=== PATIENT | female | born 1950 | race Caucasian/White ===

== ENCOUNTER → 2016-09-16 | Day surgery (SDC) | payer OTHER, MEDICARE ==
[~2016-09-16] VITALS: Ht 157.5 cm; Wt 76.2 kg
[~2016-09-16] MED LIST: AMOXICILLIN875 M1 PO; COUMADIN1 M1 PO; COUMADIN5 M2 PO; DAILY MULTIPLE1 EACH PO; DOCUSATE SODIU100 M3 PO; ECOTRIN81 MG PO; FERROUS SULFAT325 M3 PO; FLUZONE IM; MECLIZINE HCL25 MG PO; MIRTAZAPINE15 MG PO; MULTIVITAMIN1 TAB PO; NORVASC5 MG PO; PERCOCET 5-3251 EACH PO; TOPROL XL50 M1 PO; TRAMADOL HCL50 M1 PO; TRANSDERM-SCOP1 EACH TOP; TRAZODONE50 MG PO; VALSARTAN160 MG PO; VITAMIN D32000 I1 PO; ZOFRAN ODT4 M1 SL; ZOLOFT50 MG PO
--- NOTE | 2016-09-16 10:25 | Operative Report ---
Operative/Inv Procedure Report Surgery Date: 09/16/16 Name of Procedure: cystolithalopaxy, attempt at mesh erosion into bladder removal, vaginally and cystoscopically Pre-Operative Diagnosis: mesh erosion into bladder with bladder stones on eroded mesh Post-Operative Diagnosis: same Estimated Blood Loss: 200cc Surgeon/Hadoop Infrastructure Architect: ANSELMO CUENCA MD Anesthesia: laryngeal mask airway Specimens: bladder biopsies Complications: unable to remove eroded bladder mesh Condition: stable Operative Indication: eroded mesh into bladder from vagina Operative/Procedure Note Note: Operative dictation on patient Meagan Hunt. She was identified in the holding area and consented for cystolitholapaxy and vaginal mesh removal. She was given the risks benefits and alternatives of the surgery. All questions were answered. Patient was taken to the operating room placed on the operating table in the supine position. Once timeout was performed and IV antibiotics were infused LMA anesthesia was started. Patient was placed in the dorsal lithotomy position taking care of her right hip which she has injury 2. Cystoscopy was performed initially and the bladder was globally inspected. Ureteral orifices were easily identified in their normal anatomical position. On the right dome lateral wall 2 stones were seen performed on eroded mesh into the bladder wall. These were lasered with the [email or web address] laser with a 550 fiber. They were pulverized and no fragment fragments were needed to be removed. The remaining mesh was attempted to be removed with the laser fiber however it seemed to melt the mesh material rather than cut it. Attempt at cutting this the mesh out using the cystoscopic scissors was also unsuccessful. Attempts at doing with a laparoscopic scissor was also not successful. A Sanders retractor was placed to allow visualization of the vagina. The posterior approach was first attempted and the vaginal flaps are created taking care not to injure the rectum. However the suture was clear and not able to be reached in this manner and the incision was closed with running locking 2-0 Vicryl suture. Multiple rectal exams were performed to ensure that the rectum was not injured. There was an area of the weakening in the rectal wall that was oversewn with interrupted 2-0 Vicryl sutures prior to closing. Anterior vaginal wall was then infiltrated with 1% lidocaine with epinephrine and the vaginal flaps are created taking care not to injure the bladder. Again the suture was not able to be reached from this perspective either. The mesh was not palpable however of a knots or plastic device was palpable but was unable to be reached in this manner either. As result cystoscopy was performed to ensure that the bladder was not injured. And then the anterior vaginal wall was closed with running locking 2-0 Vicryl sutures well. The Jackson catheter was removed and the vagina was packed with 2 inch vaginal packing impregnated with bacitracin ointment. Patient tolerated the procedure well and sponge and needle counts were correct at the end the case. Findings: eroded mesh into right dome/lateral wall with stones formed on eroded mesh Discharge Disposition: PACU
== END ==
LOC: STS 01:29
DX: N21.0 Calculus in bladder (principal); T83.712A Erosion of implanted urethral mesh to surrounding organ or tissue, initial encounter; Y73.1 Therapeutic (nonsurgical) and rehabilitative gastroenterology and urology devices associated with adverse incidents; R10.2 Pelvic and perineal pain; J44.9 Chronic obstructive pulmonary disease, unspecified; Z87.891 Personal history of nicotine dependence; M25.851 Other specified joint disorders, right hip
CPT/HCPCS: 88305; J0131; J0690; J2250

== ENCOUNTER 2016-11-04 07:57 | Emergency (ER) | payer OTHER, MEDICARE ==
[~2016-11-04] VITALS: Ht 162.6 cm; Wt 76.2 kg
[~2016-11-04 07:57] MED LIST changes: -AMOXICILLIN875 M1 PO; -COUMADIN1 M1 PO; -COUMADIN5 M2 PO; -DAILY MULTIPLE1 EACH PO; -DOCUSATE SODIU100 M3 PO; -FERROUS SULFAT325 M3 PO; -MECLIZINE HCL25 MG PO; -PERCOCET 5-3251 EACH PO; -TOPROL XL50 M1 PO; -TRAMADOL HCL50 M1 PO; -TRANSDERM-SCOP1 EACH TOP; -ZOFRAN ODT4 M1 SL
[2016-11-04] MEDS ORDERED: TRAMADOL HCL50 M1 PO (08:13)
[2016-11-04 09:13] LABS: ABSOLUTE BASOPHIL COUNT 0 /CUMM (0.0-0.2); ABSOLUTE EOSINOPHIL COUNT 0.1 /CUMM (0.0-0.7); ABSOLUTE GRANULOCYTE CT 3.4 /CUMM (1.4-6.5); ABSOLUTE LYMPH COUNT 1.7 /CUMM (1.2-3.4); ABSOLUTE MONOCYTE COUNT 0.4 /CUMM (0.10-0.60); BASOPHIL % 0.4 % (0.0-2.0); EOSINOPHIL % 2.6 % (0-5); GRANULOCYTE % 60.2 % (42.2-75.2); HEMATOCRIT 42.5 % (37-47); MEAN CORPUSCULAR HGB 34.2 PG (27.0-31.0); MEAN CORPUSCULAR HGB CONC 34.2 G/DL (33.0-37.0); MEAN CORPUSCULAR VOLUME 99.9 FL (81.0-99.0); MEAN PLATELET VOLUME 7.6 FL (7.4-10.4); PLATELET COUNT 266 /CUMM (130-400); RBC DISTRIBUTION WIDTH 13.6 % (11.5-14.5); RED BLOOD CELL CT 4.26 /CUMM (4.20-5.40); WHITE BLOOD CELL COUNT 5.6 /CUMM (4.8-10.8)
--- NOTE | 2016-11-04 09:23 | RADIOLOGY REPORT ---
EXAMINATION: XR CHEST CLINICAL INFORMATION: Cough and weakness COMPARISON: CT screening chest 12/17/2015 TECHNIQUE: 2 views of the chest were obtained. FINDINGS: Both lungs are fairly well-expanded with platelike atelectasis left midlung. Rest of the lungs are clear. The heart size and pulmonary vascularity is normal. No gross bony abnormality seen. IMPRESSION: Platelike atelectasis left midlung. No acute pneumonic process seen.
--- NOTE | 2016-11-04 10:08 | CT SCAN REPORT ---
EXAMINATION: CT HEAD WITHOUT CONTRAST CLINICAL INFORMATION: Positional vertigo, headache. COMPARISON: CT brain 01/12/2013. TECHNIQUE: Contiguous axial imaging was performed from the skull base to vertex without intravenous administration of contrast. DLP: 600 mGy-cm FINDINGS: There is no evidence of acute intracranial hemorrhage or territorial infarction. No abnormal mass effect or midline shift is seen. [place] to white matter differentiation is well preserved. No extra-axial fluid collections are identified. The ventricles are normal in size. There is no abnormal attenuation within the brain parenchyma. The osseous structures and soft tissues are normal. The mastoid air cells and visualized portions of the paranasal sinuses are well aerated. IMPRESSION: No acute intracranial process seen.
[2016-11-04] MEDS ORDERED: MECLIZINE HCL25 MG PO (10:20)
[2016-11-04] MEDS ORDERED: ZOFRAN ODT4 M1 SL (10:20)
[2016-11-04] MEDS ORDERED: AMOXICILLIN875 M1 PO (10:20)
[2016-11-04] MEDS ORDERED: TRANSDERM-SCOP1 EACH TOP (10:20)
--- NOTE | 2016-11-04 10:20 | ED AMS/SEIZURE/WEAK/DIZZY ---
History of Present Illness General Chief Complaint: General Adult Stated Complaint: DIZZY,CHEST TIGHNESS,NAUSEA Source: patient, family, old records Exam Limitations: no limitations Vital Signs & Intake/Output Vital Signs & Intake/Output Vital Signs Date Time Temp Pulse Resp B/P Pulse O2 O2 Flow FiO2 Ox Delivery Rate 11/04 1033 98.2 88 18 158/77 96 11/04 0917 99 11/04 0830 98 Room Air 11/04 0809 97.2 84 22 183/97 95 Room Air Allergies Coded Allergies: ciprofloxacin (From Cipro) (UNKNOWN 09/15/16) sulfamethoxazole (From Bactrim) (UNKNOWN 09/15/16) trimethoprim (From Bactrim) (UNKNOWN 09/15/16) Reconcile Medications Amoxicillin 875 MG TABLET 1 TAB PO BID otitis media Aspirin (Ecotrin) 81 MG ECT 1 TAB PO DAILY HEART (Reported) CHOLECALCIFEROL (VITAMIN D3) (Vitamin D-3) 2,000 UNIT CAPSULE 1 SGL PO DAILY SUPPLEMENT (Reported) Meclizine HCl 25 MG TABLET 1 TAB PO TIDPRN PRN dizziness Ondansetron (Zofran Odt) 4 MG TAB.RAPDIS 1 TAB SL TID PRN dizziness Scopolamine Hydrobromide (Transderm-Scop) 1.5MG/3DAY PATCH.TD.3 1 PAT TOP Q3D vertigo apply to the hairless area behind 1 ear at least 4 hours before effect is required; reapply every 3 days as needed Tramadol HCl 50 MG TABLET 1 TAB PO TIDPRN PAIN (Reported) Core Measure Meds Pre-Hospital aspirin Triage Note: PT TO ED C/O CHEST "TIGHTNESS" AND DIZZINESS SINCE THIS AM. PT STATES SHE WOKE UP AT 0500 TO GO TO THE BATHROOM AND FELT DIZZY. AMBULATED TO BATHROOM, THEN BACK TO BED. AGAIN WOKE UP WITH SAME DIZZY FEELING. ALSO C/O N/V. STATES MOSTLY "PHLEGM". PT HAS NOT BEEN DIAGNOSED WITH HTN, BUT PT STATES RECENTLY IT HAS BEEN HIGH. PCP IS DR HARE, HE IS AWARE OF BP ISSUES. PT AWAITING PROVIDER EVAL. Triage Nurses Notes Reviewed? yes Onset: Just prior to arrival Duration: hour(s):, constant, continues in ED Timing: recent history Injury Environment: home Severity: moderate, severe Modifying Factors: Improves With: rest. Worsens With: movement. Associated Symptoms: cough, chest pain LMP (ages 10-50): post menopausal : No Patient currently breastfeeds: No HPI: Several days prior to admission patient complains of nasal congestion nonproductive cough malaise and prescribed Zithromax with inhaler. Several hours prior to admission patient awoke with an episode of dizziness when getting out of bed. She went back to sleep and woke 2 hours later with recurrent dizziness. She went downstairs sat in the recliner with continued symptoms along with upper abdominal/chest discomfort described as tight radiating to back associated with nausea. She denies fever chills shortness of breath headache dysuria rash bleeding. Past History Travel History Traveled to [place] past 21 day No Medical History Any Pertinent Medical History? see below for history Musculoskeletal: "BAD" RIGHT HIP Influenza Vaccine: 06/06/14 Surgical History Surgical History: non-contributory Psychosocial History What is your primary language Afghan Tobacco Use: Never used ETOH Use: denies use Illicit Drug Use: denies illicit drug use Family History Hx Contributory? No Review of Systems Review of Systems Constitutional: Reports: see HPI, malaise. EENTM: Reports: no symptoms. Respiratory: Reports: see HPI, cough. Cardiovascular: Reports: see HPI, chest pain. GI: Reports: see HPI, abdominal pain, nausea. Genitourinary: Reports: no symptoms. Musculoskeletal: Reports: see HPI, joint pain. Skin: Reports: no symptoms. Neurological/Psychological: Reports: no symptoms. Hematologic/Endocrine: Reports: no symptoms. Immunologic/Allergic: Reports: no symptoms. All Other Systems: Reviewed and Negative Physical Exam Physical Exam General Appearance: well developed/nourished, alert, awake, anxious, moderate distress, obese Head: atraumatic, normal appearance Eyes: Bilateral: normal appearance, PERRL, EOMI. Ears, Nose, Throat: normal pharynx, abnormal Tympanic (R), abnormal Typanic (L) Neck: normal inspection, supple, full range of motion, no midline tenderness Respiratory: normal breath sounds, chest non-tender, no respiratory distress, quiet respiration, lungs clear Cardiovascular: regular rate/rhythm, normal peripheral pulses, norml femoral pulses equa Peripheral Pulses: 4+ carotid (R), 4+ carotid (L) Gastrointestinal: normal bowel sounds, soft, non-tender, no organomegaly Back: normal inspection, normal range of motion Extremities: normal range of motion, no ligament instability Neurologic/Psych: no motor/sensory deficits, awake, alert, oriented x 3, positive nystagmus Reflexes: 2+: bicep (R), bicep (L). Skin: intact, normal color, warm/dry Lymphatic: no anterior cervical karla Core Measures ACS in differential dx? No CVA/TIA Diagnosis: No Severe Sepsis Present: No Septic Shock Present: No Progress Differential Diagnosis: benign positional vertigo, CVA/stroke, drug intoxication , electrolyte imbalance, labrynthitis, pneumonia Plan of Care: Orders Procedure Date/time Status TROPONIN LEVEL 11/04 854 Complete COMPREHENSIVE METABOLIC PANEL 11/04 854 Complete CBC WITHOUT DIFFERENTIAL 11/04 854 Complete EKG 11/04 0758 Active Laboratory Tests 11/04/16 0900: Anion Gap 9, Estimated GFR > 60, BUN/Creatinine Ratio 20.0, Glucose 85, Calcium 9.1, Total Bilirubin 0.7, AST 31, ALT 30, Alkaline Phosphatase 84, Troponin I < 0.01, Total Protein 6.3, Albumin 3.5, Globulin 2.8, Albumin/Globulin Ratio 1.3, CBC w Diff NO MAN DIFF REQ, RBC 4.26, MCV 99.9 H, MCH 34.2 H, RDW 13.6, MPV 7.6, Gran % 60.2, Lymphocytes % 30.2, Monocytes % 6.6, Eosinophils % 2.6, Basophils % 0.4, Absolute Granulocytes 3.4, Absolute Lymphocytes 1.7, Absolute Monocytes 0.4, Absolute Eosinophils 0.1, Absolute Basophils 0, PUBS MCHC 34.2 Diagnostic Imaging: Viewed by Me: Radiology Read. Discussed w/RAD: Radiology Read. Radiology Impression: no acute abnormality CXR Impression: no acute abnormality Initial ED EKG: normal axis, normal intervals, normal p-waves, normal QRS complex, normal sinus rhythm, nonspecific ST T wave chg Prior EKG: unchanged Rhythm Strip: normal sinus rhythm Departure Departure Time of Disposition: 1015 Disposition: HOME OR SELF CARE Condition: Stable Clinical Impression Primary Impression: Otitis media Qualifiers: Otitis media type: unspecified Laterality: unspecified laterality Chronicity: acute Qualified Code: H66.90 - Otitis media, unspecified, unspecified ear Secondary Impressions: Bronchospasm with bronchitis, acute Labyrinthine vertigo Qualifiers: Laterality: unspecified laterality Qualified Code: H81.399 - Other peripheral vertigo, unspecified ear Referrals: ANANYA FREGOSO,JUAN Pedroza (PCP/Family) Departure Forms: Customer Survey General Discharge Information Prescriptions: Current Visit Scripts Amoxicillin 1 TAB PO BID #20 TAB Ondansetron (Zofran Odt) 1 TAB SL TID PRN dizziness #15 TAB Scopolamine Hydrobromide (Transderm-Scop) 1 PAT TOP Q3D #4 PAT apply to the hairless area behind 1 ear at least 4 hours before effect is required; reapply every 3 days as needed Meclizine HCl 1 TAB PO TIDPRN PRN dizziness #30 TAB
[2016-11-04 10:33] VITALS: BP 158/77
[2016-12-04] MEDS ORDERED: TOPROL XL50 M1 PO (16:07)
[2016-12-04] MEDS ORDERED: DAILY MULTIPLE1 EACH PO (16:08)
[2016-12-04] MEDS ORDERED: FERROUS SULFAT325 M3 PO (16:08)
== END 2016-11-04 10:42 ==
LOC: ERH 07:57
PROVIDERS: Emergency Medicine
DX: H66.92 Otitis media, unspecified, left ear (principal); J20.9 Acute bronchitis, unspecified; H81.09 Meniere's disease, unspecified ear; R07.89 Other chest pain; R11.0 Nausea
CPT/HCPCS: 1263; 93005; 93010; 96361; 96374; J2405

== ENCOUNTER 2016-11-18 15:00 | Emergency (ER) | payer OTHER, MEDICARE ==
[~2016-11-18] VITALS: Ht 167.6 cm; Wt 77.1 kg
[~2016-11-18 15:00] MED LIST changes: +AMOXICILLIN875 M1 PO; +MECLIZINE HCL25 MG PO; +TRAMADOL HCL50 M1 PO; +TRANSDERM-SCOP1 EACH TOP; +ZOFRAN ODT4 M1 SL
--- NOTE | 2016-11-18 17:39 | ED UPPER/LOWER EXTREMITY COMPL ---
History of Present Illness General Chief Complaint: Lower Extremity Problems Stated Complaint: LFT ANKLE INJURY/NO INJURY Source: patient, old records Exam Limitations: no limitations Vital Signs & Intake/Output Vital Signs & Intake/Output Vital Signs Date Time Temp Pulse Resp B/P Pulse O2 O2 Flow FiO2 Ox Delivery Rate 11/18 2028 98.1 72 18 130/80 96 Room Air 11/18 1904 98.0 102 18 156/100 96 Room Air 11/18 1741 78 18 160/99 11/18 1532 98.3 112 20 175/111 96 Room Air ED Intake and Output 11/19 0000 11/18 1200 Intake Total Output Total Balance Patient 170 lb Weight Allergies Coded Allergies: ciprofloxacin (From Cipro) (UNKNOWN 09/15/16) sulfamethoxazole (From Bactrim) (UNKNOWN 09/15/16) trimethoprim (From Bactrim) (UNKNOWN 09/15/16) Reconcile Medications Amoxicillin 875 MG TABLET 1 TAB PO BID otitis media Aspirin (Ecotrin) 81 MG ECT 1 TAB PO DAILY HEART (Reported) CHOLECALCIFEROL (VITAMIN D3) (Vitamin D-3) 2,000 UNIT CAPSULE 1 SGL PO DAILY SUPPLEMENT (Reported) Meclizine HCl 25 MG TABLET 1 TAB PO TIDPRN PRN dizziness Ondansetron (Zofran Odt) 4 MG TAB.RAPDIS 1 TAB SL TID PRN dizziness Scopolamine Hydrobromide (Transderm-Scop) 1.5MG/3DAY PATCH.TD.3 1 PAT TOP Q3D vertigo apply to the hairless area behind 1 ear at least 4 hours before effect is required; reapply every 3 days as needed Tramadol HCl 50 MG TABLET 1 TAB PO TIDPRN PAIN (Reported) Triage Note: C/O PAIN WITH SWELLING TO LEFT LOWER LEG X 3 DAYS. PAIN IS LOCATED IN LEFT CALF, WORSE TO TOUCH. PMH: BLOOD CLOT LEFT LOWER LEG 2010. Triage Nurses Notes Reviewed? yes Onset: Abrupt Duration: day(s): (3), constant Timing: recent history Severity: mild, moderate Severity Numbers: 5 Pain/Injury Location: Left: Leg. Method of Injury: unknown No Modifying Factors: none Associated Symptoms: swelling HPI: 66-year-old female presents emergency room complaining of left calf pain and swelling for the past 3 days. The patient denies any known injury or trauma. The pain is nonradiating. Her history is significant for a left lower extremity DVT in 2011 status post surgery. She is no longer on any blood thinners. She reports to intermittent left leg swelling since the blood clot however states it is been persistent over the past 3 days. There is no fall or other injury. She has not taken anything for her symptoms. She denies any redness warmth or rashes to her skin no chest pain shortness of breath fever or chills. There are no modifying factors or associated symptoms otherwise. (RAFFI STAUFFER) Past History Travel History Traveled to [place] past 21 day No Medical History Any Pertinent Medical History? see below for history Respiratory: COPD Musculoskeletal: "BAD" RIGHT HIP Blood Disorders: DVT Surgical History Surgical History: non-contributory Psychosocial History What is your primary language Spanish Tobacco Use: Never used ETOH Use: occasional use Family History Hx Contributory? No (RAFFI STAUFFER) Review of Systems Review of Systems Constitutional: Reports: see HPI. All Other Systems: Reviewed and Negative Comments Review of systems: See HPI, All other systems negative. Constitutional, no chills no fever, no malaise HEENT: No visual changes no sore throat no congestion Cardiovascular: No chest pain , no palpitation Skin,no rashes, no change in skin Respiratory: No dyspnea no cough no sputum GI: No nausea no vomiting, no diarrhea : No dysuria No hematuria Muscle skeletal: No joint pain, no back pain, no neck pain, Neurologic: No numbness no headache Psych: No stress Heme/endocrine: No bruising no bleeding Immunology: No lymphadenopathy, (RAFFI STAUFFER) Physical Exam Physical Exam General Appearance: well developed/nourished, no apparent distress, alert, awake Comments: Well-developed well-nourished person in no acute distress HEENT: Normal EENT exam; PERRL, EOMI,HEAD is atraumatic. moist mucous membranes. Neck: Supple, normal range of motion Back: Nontender, Full range of motion Cardiovascular: Regular rate and rhythms no murmurs Respiratory: No respiratory distress. Patient speaking in full complete sentences. Breath sounds clear to auscultation bilaterally: NO W/R/R Abdomen: Soft, nontender Upper Extremity: No edema, full range of motion of extremities, normal and equal pulses bilaterally, 5 out of 5 strength noted to bilateral upper lower extremities Hip/Pelvis: Atraumatic/Stable. FROM. Knee: Atraumatic/stable. FROM. No joint swelling, no effusion. No laxity. No pain with ROM Leg: Atraumatic. Nontender.1 + EDEMA TO LLE, (+) HOMANS, NO OVERLYING ERYTHEMA OR RASH NO PALP CORD, 5 out of 5 strength in the lower extremity, normal dorsiflexion of great toe bilaterally, gross sensation is intact Ankle/Foot: Atraumatic/stable. Skin intact. FROM. No swelling, no effusion. No laxity on exam Pulses: Normal/equal DP/PT pulses bilaterally. Brisk cap refill Neuro: Alert oriented x3, motor sensory normal, cranial nerves II through XII grossly intact. There were no obvious focal neurologic abnormalities. Skin: No appreciable rash on exposed skin, skin is warm and dry. Psych: Mood and affect is normal, memory and judgment is normal. (ULISES PEARSON,RAFFI) Progress Differential Diagnosis: arterial insufficiency, cellulitis, compartment syndrome , contusion, dislocation, DVT, fracture, gout, sprain Plan of Care: Orders Procedure Date/time Status US-UNILATERAL VENOUS DOPPLER 11/19 1747 Active Patient is declining anything for pain when offered ultrasound ordered old records reviewed case discussed with Dr. BAILEY I discussed with the patient and her her ultrasound results and Nacho wrap was applied to the leg I advised rest ice elevation she is scheduled to see her crane chaser in 2 days as well as her primary care physician in 5 days, I but she return anytime sooner with any concerns Tylenol Motrin for pain I answered all her questions she feels comfortable with this plan (ULISES PEARSON,RAFFI) Diagnostic Imaging: Viewed by Me: Ultrasound. Discussed w/RAD: Ultrasound. Radiology Impression: PATIENT: BUBBA ADAMS PRESENT AGE: 66 PATIENT ACCOUNT NO: [id number] : 48 LOCATION: [facility] ORDERING PHYSICIAN: RAFFI PEARSON SERVICE DATE: 11/18/16 EXAM TYPE: US - US- UNILATERAL VENOUS DOPPLER EXAMINATION: US TRIPLEX LOWER EXTREMITY, LEFT parenchyma CLINICAL INFORMATION: Edema and pain left lower leg. COMPARISON: Left lower extremity venous, Doppler exam 09/09/2012. TECHNIQUE: Color-flow triplex imaging with spectral analysis and compression Doppler were performed on the left lower extremity. FINDINGS: Respiratory variation, normal compression and augmented flow are noted throughout the lower extremity. The visualized common femoral vein, superficial femoral vein, profunda femoral vein, popliteal vein and midcalf peroneal and posterior tibial venous segments show no evidence of deep venous thrombosis. There is no Stone's cyst. There is moderate left calf edema present. IMPRESSION: Normal left lower extremity venous study. There is no evidence of DVT. Normal agency of right common femoral vein is noted. There is moderate left calf edema noted. DICTATED BY: SALVADOR JOSHUA MD DATE/TIME DICTATED: 11/18/162009 POULTRY HUSBANDRY WORKER:DIANE DATE/TIME TRANSCRIBED:11/18/162009 CONFIDENTIAL, DO NOT COPY WITHOUT APPROPRIATE AUTHORIZATION. <Electronically signed in Other Vendor System> SIGNED BY: SALVADOR JOSHUA MD 11/18/162013 (RAFFI STAUFFER) Departure Departure Time of Disposition: 2017 Disposition: HOME OR SELF CARE Condition: Stable Clinical Impression Primary Impression: Leg edema Referrals: ANANYA FREGOSO,JUAN Pedroza (PCP/Family) Additional Instructions: FOLLOW UP WITH DR HARE THIS WEEK. KEEP LEG ELEVATED, NACHO WRAP DISCUSSED. TYLENOL OR MOTRIN FOR PAIN. RETURN AT ANYTIME SOONER WITH ANY CONCERNS Departure Forms: Customer Survey General Discharge Information (RAFFI STAUFFER) PA/CASE MGR Co-Sign Statement Statement: ED Attending supervision documentation- [] I saw and evaluated the patient. I have also reviewed all the pertinent lab results and diagnostic results. I agree with the findings and the plan of care as documented in the PA's/CASE MGR's documentation. [X] I have reviewed the ED Record and agree with the PA's/CASE MGR's documentation. [] Additions or exceptions (if any) to the PAs/CASE MGR's note and plan are summarized below: [] (SVETLANA FREGOSO,BRAEDEN)
--- NOTE | 2016-11-18 20:14 | ULTRASOUND REPORT ---
EXAMINATION: US TRIPLEX LOWER EXTREMITY, LEFT parenchyma CLINICAL INFORMATION: Edema and pain left lower leg. COMPARISON: Left lower extremity venous, Doppler exam 09/09/2012. TECHNIQUE: Color-flow triplex imaging with spectral analysis and compression Doppler were performed on the left lower extremity. FINDINGS: Respiratory variation, normal compression and augmented flow are noted throughout the lower extremity. The visualized common femoral vein, superficial femoral vein, profunda femoral vein, popliteal vein and midcalf peroneal and posterior tibial venous segments show no evidence of deep venous thrombosis. There is no Stone's cyst. There is moderate left calf edema present. IMPRESSION: Normal left lower extremity venous study. There is no evidence of DVT. Normal agency of right common femoral vein is noted. There is moderate left calf edema noted.
[2016-11-18 20:29] VITALS: BP 130/80
[2016-12-04] MEDS ORDERED: TOPROL XL50 M1 PO (16:07)
[2016-12-04] MEDS ORDERED: DAILY MULTIPLE1 EACH PO (16:08)
[2016-12-04] MEDS ORDERED: FERROUS SULFAT325 M3 PO (16:08)
== END 2016-11-18 20:26 ==
LOC: ERH 15:00
DX: R60.0 Localized edema (principal)

== ENCOUNTER 2016-12-14 01:04 | Inpatient (IN) | payer OTHER, MEDICARE ==
[~2016-12-14] VITALS: Ht 167.6 cm; Wt 77.1 kg
[~2016-12-14 01:04] MED LIST changes: +DAILY MULTIPLE1 EACH PO; +FERROUS SULFAT325 M3 PO; +TOPROL XL50 M1 PO
--- NOTE | 2016-12-14 14:59 | RADIOLOGY REPORT ---
EXAMINATION: XR HIP, RIGHT CLINICAL INFORMATION: Status post total hip replacement COMPARISON: None TECHNIQUE: AP view of the right hip. 2:35 PM FINDINGS: Status post hip replacement. Orthopedic components in alignment. Surgical skin clips on the right side of the hip. IMPRESSION: Status post right hip replacement.
[2016-12-14 17:00] VITALS: BP 108/62
--- NOTE | 2016-12-14 17:40 | PN- Orthopedic ---
Subjective Subjective: Patient received on general surgical floor following right total hip replacement. Is acknowledging discomfort in her operative hip at the present time. Denies chest pain, shortness of breath and difficulty breathing. Denies nausea and vomitting. Acknowledges incontinence of urine and possibly stool. Has yet to ambulate. Objective Vital Signs and I&Os BP: 100/68 HR: 68 O2: 96 RA T: 98.2 RR: 18 Physical Exam: General: Alert and oriented x3, no acute distress Cardiac: RRR, s1s2 Pulmonary: CTA bilaterally Abdomen: Non-tender, non-distended Extremities: Moves all extremities, distal sensation intact. Motor 5/5 in plantar and dorsi flexion. Skin warm and well perfused. DP pulses palpable bilaterally. Bilateral calves soft and non-tender Surgical site: Right hip, dressing dry and intact, thigh compartment soft, abduction pillow in place. Right leg in neutral alignment, no evidence of shortening. Assessment/Plan Assessment/Plan This is a 66 year old female POD 0, s/p right total hip replacement. PMH significant for depression, pvd, glaucoma, and hypertension. -Continue home medications -Pain: percocet for po pain management with iv morphine for breakthrough -Activity: WBAT, posterior hip precautions in place to include the following: Abduction pillow when supine No flexion and internal rotation No crossing right over left leg No flexing at waist greater than 90 degrees -DVT PPX: mechanical to include alps, pharmacological coumadin, target inr 2-3 -Diet: Regular, advance as tolerated -Bowel Regimen: Colace and senna with stimulant -Antibiotic ppx: Vancomycin 1g to be continued for 24 hours of prophylaxis dosing -Labs: Follow up cbc, bep and inr tomorrow -Will discuss with Dr. Goldberg Core Measures/Miscellaneous Venous Thromboembolism VTE Risk Factors: Age > 40, Surgery VTE Contraindications: No Contraindications VTE Diagnosis: No Beta Gurdeep Is Beta Gurdeep a Home Med? Yes If Yes, Was This Ordered Today? Yes Antibiotics Is Patient on Antibiotics? Yes If Yes: prophylaxis
[2016-12-14 19:00] VITALS: BP 106/60
[2016-12-14 21:00] VITALS: BP 110/60
[2016-12-14 23:24] VITALS: BP 106/76
[2016-12-15 03:03] VITALS: BP 122/78
[2016-12-15 06:15] VITALS: BP 128/70
--- NOTE | 2016-12-15 07:59 | PN- Orthopedic ---
See Addendum Subjective Subjective: Patient reporting no acute overnight events. States that hip pain is controlled. Complains of occasional twinge in groin. Complains of discomfort in right flank. States that it wraps around to her front just under right breast. Denies chest pain, shortness of breath and difficulty breathing. Denies nausea and vomitting. Has barrow cathter in place, is concerned about low urine output. Objective Vital Signs and I&Os Vital Signs Date Time Temp Pulse Resp B/P Pulse O2 O2 Flow FiO2 Ox Delivery Rate 12/15 0615 97.8 86 22 128/70 94 Room Air 12/15 0303 98.4 86 20 122/78 95 Room Air 12/14 2324 98.6 88 20 106/76 94 12/14 2100 98.0 81 20 110/60 95 Room Air 12/14 1900 97.2 80 18 106/60 95 Room Air 12/14 1700 98.0 82 18 108/62 96 Room Air Intake & Output 12/15 0800 12/15 0000 12/14 1600 12/14 0800 12/14 0000 12/13 1600 Intake Total 970 300 Output Total 100 350 Balance 870 -50 Intake, IV 850 300 Intake, Oral 120 Number 1 Bowel Movements Output, Urine 100 350 Patient 170 lb Weight Physical Exam: General: Alert and oriented x3, no acute distress Cardiac: RRR, s1s2 Pulm: CTA bilaterally Abdomen: Non-tender, non-distended Right flank: Skin intact, no ecchymosis, erythema, or bruising. Extremities: Moves all extremities, distal sensation intact. Skin warm and well perfused. DP pulses palpable. No resting internal or external rotation of right leg. No evidence of shortening on right leg. Abduction pillow in place. Bilateral calves soft and non-tender Surgical site: Right hip, dressing dry and intact. Thigh compartment soft Assessment/Plan Assessment/Plan This is a 66 year old female, POD 1, s/p right thr, pmh significant for htn, pvd , glaucoma Low urine output -Bolus now, 500 cc NACL, will follow up CBC, BEP Flank Pain -Likely due to intra-op positioning as patient was lateral with safety strap in place over affected area, will continue to monitor for redness or blistering. Because it follows dematome, will consider initiation of anti-viral if redness or blistering presents itself. General Post Op: -Continue current pain regimen -OOB with PT this am, wbat, posterior hip precautions remain in place -DVT ppx to include coumadin, follow up INR this am -Diet: Advance as tolerated -: Will d/c barrow later today if urine output adequate -Will d/w Dr. Goldberg Core Measures/Miscellaneous Venous Thromboembolism VTE Risk Factors: Age > 40, Surgery VTE Contraindications: No Contraindications VTE Diagnosis: No Beta Gurdeep Is Beta Gurdeep a Home Med? Yes If Yes, Was This Ordered Today? Yes Antibiotics Is Patient on Antibiotics? Yes If Yes: prophylaxis
--- NOTE | 2016-12-15 08:07 | NUR ---
Late entry Pt put out 100 ml of urine in barrow from [id number]. Surgical PA made aware.
[2016-12-15 10:00] VITALS: BP 124/72
[2016-12-15 10:00] LABS: ABSOLUTE BASOPHIL COUNT 0 /CUMM (0.0-0.2); ABSOLUTE EOSINOPHIL COUNT 0.1 /CUMM (0.0-0.7); ABSOLUTE LYMPH COUNT 1.4 /CUMM (1.2-3.4); ABSOLUTE MONOCYTE COUNT 0.3 /CUMM (0.10-0.60); BASOPHIL % 0.2 % (0.0-2.0); HEMATOCRIT 30.9 % (37-47); MEAN CORPUSCULAR HGB 34.5 PG (27.0-31.0); MEAN CORPUSCULAR HGB CONC 33.6 G/DL (33.0-37.0); MEAN CORPUSCULAR VOLUME 102.7 FL (81.0-99.0); MEAN PLATELET VOLUME 8.1 FL (7.4-10.4); PLATELET COUNT 137 /CUMM (130-400); PT 27.8 SEC (9.4-12.5); RBC DISTRIBUTION WIDTH 14.5 % (11.5-14.5); RED BLOOD CELL CT 3.01 /CUMM (4.20-5.40); WHITE BLOOD CELL COUNT 5.8 /CUMM (4.8-10.8)
[2016-12-15] MEDS ORDERED: COUMADIN1 M1 PO (10:58)
[2016-12-15] MEDS ORDERED: COUMADIN5 M2 PO (10:58)
[2016-12-15] MEDS ORDERED: PERCOCET 5-3251 EACH PO (10:58)
--- NOTE | 2016-12-15 11:00 | Patient Discharge Instructions ---
Discharge Instructions General Discharge Information You were seen/treated for: Primary unilateral right hip osteoarthritis You had these procedures: Right total hip replacement Special Instructions: Follow-up with your surgeon 2 weeks from surgery for a wound check. Call the office with any concerns of fever greater than 101.5. Large amounts of discharge or drainage from the wound or inability to bear weight on your operative side. You may weight-bear as tolerated. Activity as tolerated. Total hip precautions in place, do not bend at the waist more than 90, avoid turning your knee in and bending forward. Please sleep with a pillow between your legs. Keep the dressing dry as possible, you may shower with the dressing in place however, do not take a bath or submerge the wound in water as this will increase her chance of infection. Change the dressings after the shower. You may use dry gauze and tape or large Band-Aids Do not apply any ointments to the wound. Due to a risk of blood clots you'll need to be on Coumadin for the next 4-6 weeks, follow-up with your surgeon for INR checks twice per week Take pain medication as directed. Apply ice as needed for 20 minutes every hour for the first few days. Please take Colace and/or Miralax [id number] to avoid constipation while you're on narcotic pain medication. Diet Continue normal diet: Yes Activity Full Activity/No Limits: No Activity Self Limited: No Pounds, do NOT lift more than: 10 Activity Limited to: Weight bear as tolerated Other activity limits: Total hip precautions Acute Coronary Syndrome Inclusion Criteria At DC or during hospital stay patient has or had the following: ACS DIAGNOSIS No Discharge Core Measures Meds if any: Prescribed or Continued at Discharge Meds if any: NOT Prescribed or Continued at Discharge Congestive Heart Failure Inclusion Criteria At DC or during hospital stay patient has or had the following: CHF DIAGNOSIS No Discharge Core Measures Meds if any: Prescribed or Continued at Discharge Meds if any: NOT Prescribed or Continued at Discharge Cerebrovascular accident Inclusion Criteria At DC or during hospital stay patient has or had the following: CVA/TIA Diagnosis No Discharge Core Measures Meds if any: Prescribed or Continued at Discharge Meds if any: NOT Prescribed or Continued at Discharge Venous thromboembolism Inclusion Criteria VTE Diagnosis No VTE Type NONE VTE Confirmed by (Test) NONE Discharge Core Measures - Per Current guidelines, there needs to be overlap - treatment for the first 5 days of Warfarin therapy. - If discharged on Warfarin prior to 5 days of - overlap therapy, the patient will need to be - assessed for post discharge needs including - *Post discharge parental anticoagulation - *Warfarin and/or parental anticoagulation education - *Follow up date to check INR post discharge At least 5 days overlap therapy as Inpatient No Meds if any: Prescribed or Continued at Discharge Note: Overlap Therapy is Warfarin and Anticoagulant Meds if any: NOT Prescribed or Continued at Discharge Meds if any: NOT Prescribed or Continued at Discharge
--- NOTE | 2016-12-15 11:11 | Surgical Discharge Summary ---
See Addendum Visit Information Visit Dates Admission Date: 12/14/16 Discharge Date: 12/16/16 History of Present Illness Chief Complaint: Right hip pain secondary to osteoarthritis Medical History Blood Transfusion Hx: No Neurological: NONE Cardiovascular: hypertension Respiratory: COPD Gastrointestinal: NONE Hepatic: NONE Renal: NONE Musculoskeletal: "BAD" RIGHT HIP Psychiatric: NONE Endocrine: NONE Blood Disorders: DVT Cancer(s): NONE History of MRSA: No History of VRE: No History of CDIFF: No Isolation History: Standard Influenza Vaccine: 06/20/16 Surgical History Pertinent Surgical History: non-contributory Psychosocial History Where Do You Live? Home Who Do You Live With? Spouse What is Your Primary Language? Belarusian Review of Systems: see HPI Hospital Course Course Attending Physician: AMY BOWEN MD Primary Care Physician: JUAN HARE MD Hospital Course: Patient was admitted for elective right total hip replacement secondary to osteoarthritis. The patient tolerated the procedure well without complications. Postoperatively the patient was monitored and tolerated by mouth intake, vital signs are stable, afebrile. Patient was able to void spontaneously. Pain was well-controlled. Evaluated by physical therapy and deemed stable for discharge . Plan is to follow up as scheduled and instructed to call with any questions or concerns She was started on Coumadin for DVT prophylaxis She was given antibiotics for infectious prophylaxis Allergies: Coded Allergies: ciprofloxacin (From Cipro) (UNKNOWN 09/15/16) sulfamethoxazole (From Bactrim) (UNKNOWN 09/15/16) trimethoprim (From Bactrim) (UNKNOWN 09/15/16) Disposition Summary Disposition Principal Diagnosis: Primary unilateral right hip osteoarthritis Additional Diagnosis: Status post right total hip replacement Discharge Disposition: home health services Discharge Instructions General Discharge Information Code Status: Full Code Patient's Diet: Regular Patient's Activity: Activity as tolerated, self-limiting with total hip precautions in place Follow-Up Instructions/Appts: Follow-up with your surgeon 2 weeks post operatively for a wounde check. Call the office with any concerns of fever greater than 101.5. Large amounts of discharge or drainage from the wound or inability to bear weight on your operative side. The visiting nurse will remove your sutures/ynes in approximately 2 weeks' time if applicable You may weight-bear as tolerated. Activity as tolerated. Total hip precautions in place, do not bend at the waist more than 90, avoid turning your knee in and bending forward. Please sleep with a pillow between your legs. Keep the dressing dry as possible, you may shower with the dressing in place however, do not take a bath or submerge the wound in water as this will increase her chance of infection. Change the dressings after the shower. You may use dry gauze and tape or large Band-Aids Do not apply any ointments to the wound. Due to a risk of blood clots you'll need to be on Coumadin for the next 4-6 weeks, follow-up with your surgeon for INR checks twice per week Take pain medication as directed. Apply ice as needed for 20 minutes every hour for the first few days. Please take Colace and/or MiraLAX [id number] to avoid constipation while you're on narcotic pain medication. Medications at Discharge Discharge Medications: Continue taking these medications: Aspirin (Ecotrin) 81 MG ECT 1 Tablet ORAL DAILY CHOLECALCIFEROL (VITAMIN D3) (Vitamin D-3) 2,000 UNIT CAPSULE 1 SGL ORAL DAILY Metoprolol Succ XL (Toprol Xl) 50 MG TAB Milligram ORAL DAILY Ferrous Sulfate (Ferrous Sulfate) 325 MG (65 MG IRON) TABLET 1 Tablet ORAL DAILY Multivitamin (Daily Multiple Vitamin) 1 EACH TABLET 1 Tablet ORAL DAILY Start taking the following new medications: Docusate Sodium (Docusate Sodium) 100 MG CAPSULE 100 Milligram ORAL TWICE DAILY Qty = 60 No Refills Oxycodone HCl/Acetaminophen (Percocet 5-325 MG Tablet) 5 MG-325 MG TABLET 1-2 Tablet ORAL EVERY 4 HOURS NEEDED as needed for PAIN Qty = 30 No Refills Warfarin Sodium (Coumadin) 5 MG TABLET 1 Tablet ORAL DAILY Qty = 60 No Refills
[2016-12-15 11:44] LABS: RBC DISTRIBUTION WIDTH 14.4 % (11.5-14.5)
[2016-12-15 11:48] LABS: ABSOLUTE BASOPHIL COUNT 0 /CUMM (0.0-0.2); ABSOLUTE EOSINOPHIL COUNT 0.1 /CUMM (0.0-0.7); ABSOLUTE GRANULOCYTE CT 5.5 /CUMM (1.4-6.5); ABSOLUTE LYMPH COUNT 1.3 /CUMM (1.2-3.4); ABSOLUTE MONOCYTE COUNT 0.3 /CUMM (0.10-0.60); BASOPHIL % 0.3 % (0.0-2.0); EOSINOPHIL % 1.2 % (0-5); GRANULOCYTE % 75.5 % (42.2-75.2); HEMATOCRIT 35.6 % (37-47); MEAN CORPUSCULAR HGB 35.5 PG (27.0-31.0); MEAN CORPUSCULAR HGB CONC 34.8 G/DL (33.0-37.0); MEAN CORPUSCULAR VOLUME 102.1 FL (81.0-99.0); MEAN PLATELET VOLUME 8.1 FL (7.4-10.4); PLATELET COUNT 165 /CUMM (130-400); RED BLOOD CELL CT 3.49 /CUMM (4.20-5.40); WHITE BLOOD CELL COUNT 7.3 /CUMM (4.8-10.8)
--- NOTE | 2016-12-15 14:58 | Operative Report ---
Operative/Inv Procedure Report Surgery Date: 12/14/16 Name of Procedure: Right total hip arthroplasty Pre-Operative Diagnosis: Right hip primary osteoarthritis Post-Operative Diagnosis: Same Estimated Blood Loss: 50ml to 100ml Surgeon/Painter Sign Maintenance: JESSI FREGOSO,Blue REYES Anesthesia: block Implants: Walton secure fit size 8 femoral stem with a 132 neck angle 52 Trident acetabulum 36-2.5 femoral head Drains: None Specimens: Femoral head and acetabular reamings Microbiology: Urine Complications: None Condition: stable Operative Indication: This patient is a 66-year-old woman who has a history of Developing severe osteoarthritis of the right hip. Underlying cause appears to be hip dysplasia. She had a very shallow acetabulum based on preoperative x-rays. Conservative treatment resulted in only short-term improvement. She wished to proceed with total hip arthroplasty after risks, benefits and expectations were discussed including but not limited to persistent hip pain, need for subsequent surgery, infection, DVT, leg length discrepancy, dislocation, anesthesia risks Operative/Procedure Note Note: Patient was brought to the operating room and transferred to the operating table. Once under appropriate anesthesia the patient was placed into a left lateral decubitus position with right side up. All bony prominences well- padded. An axillary roll was placed. Right lower extremity was prepped and draped in standard fashion. Preoperative IV antibiotics were given prophylactically. A standard lateral incision was made for anticipated superior approach to the hip. Incision was taken down sharply to the underlying fascia. The fascia was incised in line with the skin incision. Hip was internally rotated after retractors were placed. The piriformis is identified and reflected posteriorly. The interval between the gluteus minimus tendon and superior capsule was identified and a retractor was placed this interval. An inferior Retractor was placed as well. A central portion of the posterior capsule was incised and reflected posteriorly. Superior and inferior portions of the was her capsule were excised. Hip was dislocated. Measurements were taken between intertrochanteric line to the center the femoral head for later comparison purposes for leg length assessment. Femoral neck cut was made based on preoperative templating and intraoperative measurements. I then placed a retractor anteriorly to retract the femur anterior to the acetabulum for exposure. Remnants of the degenerative labral tissues were excised. Soft tissues were removed from the acetabular fossa. Once this was completed I started reaming with a size 46 and reamed up to a size 51 for anticipated insertion of a size 52 acetabular shell. After copious irrigation the definitive shell was impacted in place with the appropriate anteversion and abduction based on my intraoperative measurements, the Walton tower and preoperative templating. Excellent bony fixation. 2 screws were placed in standard safe zone. I then impacted the definitive liner to accept a 36 motor femoral head. Locking mechanism was confirmed. I then placed a lap sponge in the acetabular fossa to protect the polyethylene during preparation of the femur. I use a box osteotome to lateralize my insertion site. This was followed by hand reamers up to a size 8. I broached up to a size 8 I left the last broach in place. I did a trial reduction the 132 neck angle match patient 's anatomy the best. I then removed all trial components from the femur and after copious irrigation I impacted the definitive size 8 secure fit femoral stem with the 132 neck angle. Excellent scratch fit.. I dried the trunnion and placed a -2.536 motor femoral head in place. The locking mechanism was confirmed. Hip was reduced. Excellent stability. No evidence of anterior instability with simultaneous extension and external rotation. No evidence of posterior stability with simultaneous internal rotation adduction and flexion to greater than 90. After copious irrigation I then repaired the capsule followed by the piriformis. Every level of closure was followed by copious irrigation. Fascia was closed with interrupted #1 Vicryl sutures. Subcutaneous tissues closed in 2 layers with 2-0 Vicryl and skin was closed with ynes. Appropriate just his were applied and patient was awakened and taken to recovery room in good condition. No intraoperative complications. Blood loss was 100 mL Discharge Disposition: PACU
[2016-12-15 15:09] VITALS: BP 109/58
--- NOTE | 2016-12-15 22:54 | Event Note ---
Event Note Event Note: RAPID RESPONSE 22:45 WAS AMBULATING TO THE BATHROOM WITH ASSIST WHEN SHE SLIPPED AND THE MED PINION POLISHER WAS THERE TO CATCH HER AND LOWER HER TO THE FLOOR. SHE DID NOT HAVE A SIGNIFICANT TRAUMA, NO SYNCOPE, NO LOC. NO INCREASED PAIN OR DEFORMITY TO THE R HIP. PT WAS ABLE TO STAND WITH ASSIST OF 2 AND TOOK A FEW SMALL STEPS TO THE TOILET AND SAT DOWN TO URINATE WITHOUT DIFFILCUTY. SHE WAS ABLE TO WALK TO THE BED WITH THE WALKER WITHOUT DIFFILCUTY. HIP EXAM WAS LARGELY BENIGN, NO UNEXPETED PAIN WITH PALP OR ROM, NO SHORTENING OR ROTATION, NVI. NO TESTING OR WORK UP NEEDED. CONT CURRENT CARE.
[2016-12-15 22:59] VITALS: BP 114/66
[2016-12-16 07:00] VITALS: BP 120/74
--- NOTE | 2016-12-16 07:07 | PN- Orthopedic ---
See Addendum Subjective Subjective: POD #2 s/p right THR. No complaints at present. Pain 5/10 with movement, but comfortable this morning. Denies N/V, F/C, CP/SOB. Ambulating with PT. Voiding spontaneously. Slipped on urine last night but [employer] ADMINISTRATOR caught patient and carefully placed her to floor. Did not injure herself. Did not hit head or lose consciousness. No pain at present. Objective Vital Signs and I&Os Vital Signs Date Time Temp Pulse Resp B/P Pulse O2 O2 Flow FiO2 Ox Delivery Rate 12/16 0700 98.8 91 20 120/74 93 Room Air 12/15 2259 97.8 81 20 114/66 94 Room Air 12/15 1509 98.4 86 20 109/58 96 Room Air 12/15 1000 97.2 82 20 124/72 95 Room Air 12/15 0804 86 128/70 Intake & Output 12/16 0800 12/16 0000 12/15 1600 12/15 0800 12/15 0000 12/14 1600 Intake Total 800 1420 970 300 Output Total 400 400 100 350 Balance 400 1020 870 -50 Intake, IV 600 900 850 300 Intake, Oral 200 520 120 Number 1 0 1 Bowel Movements Output, Urine 400 400 100 350 Patient 170 lb Weight Physical Exam: Gen: AAOx3 in NAD Cor: S1+S2+ Lungs: CTA aiden Abd: soft, NT, ND, +BS x4 Ext: right hip dressing removed and replaced. Incision C/D/I with ynes. Some surrounding ecchymosis. No drainage or erythema noted. Thigh/calf compartments soft. Palpable DP/PT pulse. Dorsi and plantar flexion intact. Current Medications: Current Medications Sig/Allison Start time Last Medication Dose Route Stop Time Status Admin Al Hydroxide/Mg 30 ML Q6P PRN 12/14 1800 AC Hydroxide PO Dextrose/Lactated 1,000 ML Q13H 12/14 1800 DC 12/15 Ringer's IV 2304 Docusate Sodium 100 MG DAILY 12/16 1000 AC PO Docusate Sodium 100 MG DAILY NEEDED PRN 12/14 1800 DC PO Ketorolac 15 MG Q6P PRN 12/15 0830 DC 12/15 Tromethamine IV 12/18 0831 2258 Metoprolol Succinate 50 MG DAILY 12/15 1000 AC 12/15 PO 0804 Morphine Sulfate 2 MG Q3P PRN 12/14 1800 DC 12/14 IV 1815 Ondansetron HCl 4 MG .STK-MED ONE 12/15 1919 DC IM 12/15 1920 Ondansetron HCl 4 MG .STK-MED ONE 12/15 0949 DC IM 12/15 0950 Ondansetron HCl 4 MG Q6P PRN 12/14 1800 AC 12/15 IV 1924 Oxycodone/ 1 TAB Q4P PRN 12/14 1800 AC Acetaminophen PO Oxycodone/ 2 TAB Q4P PRN 12/14 1800 AC 12/16 Acetaminophen PO 0559 Polyethylene Glycol 17 GM DAILY 12/15 1115 AC PO Polyethylene Glycol 17 GM DAILY NEEDED PRN 12/14 1800 DC PO Senna/Docusate Sodium 2 TAB AT BEDTIME NEED.. 12/14 1800 AC PO Sodium Chloride 500 ML BOLUS ONE 12/15 0730 DC 12/15 IV 12/15 0829 0801 Warfarin Sodium 5 MG COUMADIN 1700 ONE 12/15 1700 DC 12/15 PO 12/15 1701 1649 Results Last 48 Hours of Labs: Laboratory Tests 12/15 12/15 1128 1111 Chemistry Sodium (137 - 145 mmol/L) 133 L Potassium (3.5 - 5.1 mmol/L) 3.6 Chloride (98 - 107 mmol/L) 98 Carbon Dioxide (22 - 30 mmol/L) 28 Anion Gap (5 - 16) 7 BUN (7 - 17 mg/dL) 8 Creatinine (0.5 - 1.0 mg/dL) 0.7 Estimated GFR (>60 ml/min) > 60 BUN/Creatinine Ratio (7 - 25 %) 11.4 Coagulation PT (9.4 - 12.5 SEC) 12.0 INR (0.90 - 1.19) 1.14 Hematology CBC w Diff NO MAN DIFF REQ WBC (4.8 - 10.8 /CUMM) 7.3 RBC (4.20 - 5.40 /CUMM) 3.49 L Hgb (12.0 - 16.0 G/DL) 12.4 Hct (37 - 47 %) 35.6 L MCV (81.0 - 99.0 FL) 102.1 H MCH (27.0 - 31.0 PG) 35.5 H RDW (11.5 - 14.5 %) 14.4 Plt Count (130 - 400 /CUMM) 165 MPV (7.4 - 10.4 FL) 8.1 Gran % (42.2 - 75.2 %) 75.5 H Lymphocytes % (20.5 - 51.1 %) 18.3 L Monocytes % (1.7 - 9.3 %) 4.7 Eosinophils % (0 - 5 %) 1.2 Basophils % (0.0 - 2.0 %) 0.3 Absolute Granulocytes (1.4 - 6.5 /CUMM) 5.5 Absolute Lymphocytes (1.2 - 3.4 /CUMM) 1.3 Absolute Monocytes (0.10 - 0.60 /CUMM) 0.3 Absolute Eosinophils (0.0 - 0.7 /CUMM) 0.1 Absolute Basophils (0.0 - 0.2 /CUMM) 0 PUBS MCHC (33.0 - 37.0 G/DL) 34.8 12/15 0820 Coagulation PT (9.4 - 12.5 SEC) 27.8 H INR (0.90 - 1.19) 2.67 H Hematology CBC w Diff NO MAN DIFF REQ WBC (4.8 - 10.8 /CUMM) 5.8 RBC (4.20 - 5.40 /CUMM) 3.01 L Hgb (12.0 - 16.0 G/DL) 10.4 L Hct (37 - 47 %) 30.9 L MCV (81.0 - 99.0 FL) 102.7 H MCH (27.0 - 31.0 PG) 34.5 H RDW (11.5 - 14.5 %) 14.5 Plt Count (130 - 400 /CUMM) 137 MPV (7.4 - 10.4 FL) 8.1 Gran % (42.2 - 75.2 %) 68.0 Lymphocytes % (20.5 - 51.1 %) 23.8 Monocytes % (1.7 - 9.3 %) 6.0 Eosinophils % (0 - 5 %) 2.0 Basophils % (0.0 - 2.0 %) 0.2 Absolute Granulocytes (1.4 - 6.5 /CUMM) 4.0 Absolute Lymphocytes (1.2 - 3.4 /CUMM) 1.4 Absolute Monocytes (0.10 - 0.60 /CUMM) 0.3 Absolute Eosinophils (0.0 - 0.7 /CUMM) 0.1 Absolute Basophils (0.0 - 0.2 /CUMM) 0 PUBS MCHC (33.0 - 37.0 G/DL) 33.6 Assessment/Plan Assessment/Plan A: POD #2 s/p right THR; AVSS. Plan: PT to see again today and clear for stairs. (has 3 steps to get in) Dispo: HHS ? today. Continue current pain regimen. Stopped IV prn pain meds. Had BM yesterday. Core Measures/Miscellaneous Venous Thromboembolism VTE Risk Factors: Age > 40, Surgery VTE Contraindications: No Contraindications VTE Diagnosis: No Beta Gurdeep Is Beta Gurdeep a Home Med? Yes If Yes, Was This Ordered Today? Yes Antibiotics Is Patient on Antibiotics? Yes If Yes: prophylaxis
[2016-12-16] MEDS ORDERED: COUMADIN5 M2 PO (08:22)
[2016-12-16] MEDS ORDERED: DOCUSATE SODIU100 M3 PO (08:26)
[2016-12-16] MEDS ORDERED: PERCOCET 5-3251 EACH PO ×2 (08:26→08:35)
[2016-12-16 08:30] LABS: PT 18.2 SEC (9.4-12.5)
[2016-12-16 09:13] LABS: ABSOLUTE BASOPHIL COUNT 0 /CUMM (0.0-0.2); ABSOLUTE EOSINOPHIL COUNT 0.2 /CUMM (0.0-0.7); ABSOLUTE GRANULOCYTE CT 5.1 /CUMM (1.4-6.5); ABSOLUTE LYMPH COUNT 1.2 /CUMM (1.2-3.4); ABSOLUTE MONOCYTE COUNT 0.4 /CUMM (0.10-0.60); BASOPHIL % 0 % (0.0-2.0); EOSINOPHIL % 2.3 % (0-5); HEMATOCRIT 31.4 % (37-47); MEAN CORPUSCULAR HGB CONC 33.9 G/DL (33.0-37.0); MEAN CORPUSCULAR VOLUME 103.2 FL (81.0-99.0); MEAN PLATELET VOLUME 8.3 FL (7.4-10.4); PLATELET COUNT 136 /CUMM (130-400); RBC DISTRIBUTION WIDTH 14.4 % (11.5-14.5); RED BLOOD CELL CT 3.04 /CUMM (4.20-5.40); WHITE BLOOD CELL COUNT 6.8 /CUMM (4.8-10.8)
[2016-12-16 10:48] VITALS: BP 120/74
[2016-12-16] MEDS ORDERED: ZOFRAN ODT4 M1 SL (11:28)
== END 2016-12-16 13:00 | disposition home health service (06) | DRG 470 ==
LOC: ENRESERVTM → ENRESERVDT → 2NB 01:04 → SDA 01:04 → ENPENDDIS 01:04 → 2NB 16:47
PROVIDERS: Physician Assistant Surgical; ADMIT Orthopaedic Surgery
PROC: 0SR904A Replacement of Right Hip Joint with Ceramic on Polyethylene Synthetic Substitute, Uncemented, Open Approach (ICD-10-PCS; principal; 2016-12-14)
DX: M16.11 Unilateral primary osteoarthritis, right hip (principal); I10 Essential (primary) hypertension; F32.9 Major depressive disorder, single episode, unspecified; J43.9 Emphysema, unspecified
CPT/HCPCS: 2NBP; 73501; 82436; 87086; 88304; 97110-GO; 97116-GO; 97161-GP; 97165-GO; 97530-GO; J0131; J2270; J2405; J3370; J7040